=== PATIENT | female | born 1945 | race Caucasian/White ===

== ENCOUNTER 2017-08-06 12:40 | Emergency (ER) | payer OTHER ==
[~2017-08-06] VITALS: Ht 154.9 cm; Wt 62.8 kg
[2017-08-06 13:07] VITALS: BP 121/54; PULSE 88; RESP 18; TEMP 97.8
[2017-08-06] MEDS ORDERED: VITA500T4 PO (13:16)
[2017-08-06] MEDS ORDERED: PRAD150C PO (13:16)
[2017-08-06] MEDS ORDERED: FURO1TAB62 PO (13:16)
[2017-08-06] MEDS ORDERED: BREX1TAB2 PO (13:16)
[2017-08-06] MEDS ORDERED: DEPA500T PO (13:16)
--- NOTE | 2017-08-06 14:23 | PD ---
HPI Chief Complaint: Pain: Acute or Chronic Time Seen by Provider: 13:02 Travel History International Travel<30 days: No Contact w/Intl Traveler<30days: No Traveled to known affect area: No History of Present Illness HPI This is a 72-year-old female presents to the ER complaining of a knot in the left leg. Patient is a history of DVT in the left leg and has been taken blood thinner since then. Yesterday she noticed a red nod behind the left knee, nondistended, warm to touch, pulsating. pain is dull, comes and goes, 3 out of 10 and radiates to the back of the knee. Pain is worse when she moves her knee , she denies any fever chills or night sweats. PFSH Past Medical History Hx Anticoagulant Therapy: Yes Bipolar Disorder: Yes Anxiety: Yes Depression: Yes Medical other: Yes (clot in left groin) Tetanus Vaccination: > 5 Years Influenza Vaccination: Yes Past Surgical History Tonsillectomy: Yes (and Adenoids) Other Surgery: Yes (breast reduction) Social History Alcohol Use: Yes (occ) Tobacco Use: No Allergies-Medications (Allergen,Severity, Reaction): Coded Allergies: Sulfa (Sulfonamide Antibiotics) (Verified Allergy, Severe, 08/06/17) Reported Meds & Prescriptions Reported Meds & Active Scripts Active Reported Lasix (Furosemide) 20 Mg Tab 20 Mg PO DAILY Vitamin B-12 (Cyanocobalamin) 500 Mcg Tab 1,000 Mcg PO DAILY Depakote DR (Divalproex Sodium) 500 Mg Tabdr 500 Mg PO BID Rexulti (Brexpiprazole) 0.5 Mg Tab 0.5 Mg PO DAILY Pradaxa (Dabigatran) 150 Mg Cap 150 Mg PO BID Review of Systems Except as stated in HPI: all other systems reviewed are Neg Physical Exam Narrative GENERAL: Alert oriented 3 no acute distress SKIN: Focused skin assessment warm/dry. HEAD: Atraumatic. Normocephalic. EYES: Pupils equal and round. No scleral icterus. No injection or drainage. ENT: No nasal bleeding or discharge. Mucous membranes pink and moist. NECK: Trachea midline. No JVD. CARDIOVASCULAR: Regular rate and rhythm. No murmur appreciated. RESPIRATORY: No accessory muscle use. Clear to auscultation. Breath sounds equal bilaterally. GASTROINTESTINAL: Abdomen soft, non-tender, nondistended. Hepatic and splenic margins not palpable. MUSCULOSKELETAL: Small skin mass on the back of the knee laterally, approximately 3 cm in diameter, movable, tender, warm to touch, nonpulsating, no area of induration. Full range of motion in the knee. Varicose veins on both legs noted. Pulses intact. no clubbing. No cyanosis. No edema. NEUROLOGICAL: Awake and alert. No obvious cranial nerve deficits. Motor grossly within normal limits. Normal speech. PSYCHIATRIC: Appropriate mood and affect; insight and judgment normal. Data Data Last Documented VS Vital Signs Date Time Temp Pulse Resp B/P (MAP) Pulse Ox O2 Delivery O2 Flow Rate FiO2 08/06/17 13:07 97.8 88 18 121/54 (76) Orders Orders Us Leg Venous Doppler (08/06/17 ) [facility] Medical Decision Making Medical Screen Exam Complete: Yes Emergency Medical Condition: Yes Differential Diagnosis bakers cyst,new deep venous thrombosis, thrombophlebitis Narrative Course This is a 72-year-old female presents complaining of not in the left knee. Lower venous Doppler showed deep as well as superficial venous thrombosis. Patient is on Pradaxa and she is compliant with her medication. I spoke with Dr. Cameron hematology reconciliation machine operator and his recommendation was to switch Pradaxa to Eliquis and have the patient follow-up with broadcast correspondent. Patient is from [place] and she is traveling back home. She states that she will follow-up with her primary as well as her broadcast correspondent. She agreed to the plan of care and is ready to be discharged. Diagnosis Primary Impression: DVT (deep venous thrombosis) Qualified Codes: I82.412 - Acute embolism and thrombosis of left femoral vein Additional Impression: Superficial vein thrombosis Additional Instructions: Take Eliquis 10 mg 2 times a day for 7 days then take Eliquis 5 mg 2 times a day follow-up with primary care as well as broadcast correspondent in the ER if symptoms change or do not improve. Scripts Apixaban (Eliquis) 5 Mg Tab 10 MG PO BID for Blood Clot Prevention, #14 TAB 0 Refills Prov: Tyrone Rich MD 08/06/17 Apixaban (Eliquis) 5 Mg Tab 5 MG PO BID for Blood Clot Prevention, #60 TAB 0 Refills Prov: Tyrone Rich MD 08/06/17 Disposition: 01 DISCHARGE HOME Condition: Stable Tyrone Rich MD Aug 06, 2017 14:23
--- NOTE | 2017-08-06 14:42 | RADRPT ---
EXAM DATE/TIME: 08/06/2017 14:12 [facility] COMPARISON: None. INDICATIONS : Redness and pain in left leg. MEDICAL HISTORY : Deep venous thrombosis. Anticoagulant therapy. SURGICAL HISTORY : Breast reduction. ENCOUNTER: Initial ACUITY: 1 day PAIN SCORE: 3/10 LOCATION: Left leg. TECHNIQUE: Venous ultrasound of the leg was performed from the inguinal ligament to the proximal calf. Real-hector e, color Doppler and spectral tracing, compression and augmentation techniques were used. FINDINGS: There is nonocclusive thrombus in the left lower extremity extending from the common femoral veins th e peroneal vein. Superficial venous thrombosis seen in the left medial popliteal fossa. Greater saphe nous vein is patent. CONCLUSION: 1. Examination is positive for both deep venous thrombosis and superficial venous thrombosis as above . Luigi Mims MD on August 06, 2017 at 14:38 Board Certified Radiologist. This report was verified electronically.
[2017-08-06] MEDS ORDERED: APIX5TAB PO (15:32)
[2017-08-06 15:52] VITALS: BP 118/58; RESP 16; O2SAT 98
== END 2017-08-06 16:03 | disposition home or self-care (01) ==
LOC: PHED 12:40
DX: I82.412 Acute embolism and thrombosis of left femoral vein (principal); I82.812 Embolism and thrombosis of superficial veins of left lower extremity; F41.8 Other specified anxiety disorders; Z79.01 Long term (current) use of anticoagulants
CPT/HCPCS: 93971; 99284